=== PATIENT | female | born 1965 | race Caucasian/White ===

== ENCOUNTER 2016-12-10 07:46 | Observation (INO) | payer BC, OTHER ==
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
--- OUTSIDE RECORDS SUMMARY | 2016-12-10 08:21 | XMS REPORT | Continuity of Care Document ---
:1965 Author Organization [place] [address] Care Team Providers Name Role Phone Laurel Frausto Primary Care Provider [phone] Source Comments This disclosure is being made pursuant to the [employer] program and maynot contain all information available regarding this patient.[facility] Active Allergies and Adverse Reactions Allergen Noted Date Severity Reactions Comments Augmentin 11/21/2016 Unknown Dobutamine 10/14/2016 Low Hypotension Propoxyphene 05/09/2015 Low Tachycardia Shellfish Allergy 05/09/2015 High Anaphylaxis Current Medications Be aware that medications may not be up to date as of this document. Alwaysverify current medications with the patient. Prescription Sig. Disp. Refills Start Date End Date Status candesartan-hydrochl Take 1 tablet Active orothiazide (ATACAND by mouth HCT) 16-12.5 MG per daily. tablet aspirin 81 MG tablet Take 81 mg by Active mouth daily. ALPRAZolam (XANAX) 1 Take 1 mg by Active MG tablet mouth nightly as needed for Sleep. venlafaxine HCl Take 75 mg by Active (EFFEXOR) 75 MG mouth daily. tablet Probiotic Product Take by Active (PROBIOTIC DAILY PO) mouth. thyroid (ARMOUR) 65 Take 1 tablet 30 tablet 5 11/21/2016 Active MG tablet by mouth daily. levothyroxine Take 100 mcg 11/21/2016 Discontinued (SYNTHROID, by mouth LEVOTHROID) 100 MCG daily. tablet Active Problems Problem Noted Date Hypothyroidism 01/03/2014 Overview: Overview: NIKOLAS THOMPSON MD Family history of malignant neoplasm of gastrointestinal tract 09/25/2011 Overview: Overview: PRIETO BRUNNER MD Perforation of intestine (HCC) 08/19/2011 Overview: Overview: [place] Emily SAMANTA ALFARO Abnormal mammogram 04/11/2011 Overview: Overview: AYANNA CID MD History of cervical dysplasia 05/10/2010 Overview: Overview: AYANNA CID MD Mild dysplasia of cervix (ROLDAN I) 11/14/2008 Overview: Overview: Sissy FRENCH MD Dyspareunia 11/14/2008 Overview: Overview: Sissy FRENCH MD Hypertension, benign 11/14/2008 Overview: Overview: Sissy FRENCH MD Symptomatic menopausal or female climacteric states 11/15/2004 Overview: Overview: Sissy FRENCH MD Most Recent Encounters Date Type Specialty Providers Description 12/05/2016 Data Import 11/21/2016 Initial consult Endocrinology Husam Aguayo Hypothyroidism C, DO (acquired) (Primary Dx); Other fatigue; Morbid obesity due to excess calories (HCC) 11/11/2016 Abstract Endocrinology Divya Sanchez, RN 11/11/2016 Orders Only Provider, Not In System 11/05/2016 Telephone Gastroenterology Prieto Brunner Procedure MD 10/21/2016 Office Visit General Surgery Cleveland Alfaro Aftercare following S, OUTDOOR STUDIES DIRECTOR surgery (Primary Dx) 10/16/2016 Telephone General Surgery Dale Grarison Results - pathology S, DO 10/16/2016 Orders Only Cardiology Georgia Clements Hypertension, benign A, LAST REPAIRER HELPER (Primary Dx) 10/14/2016 Office Visit Cardiology Lydia Perez R, Status post coronary OUTDOOR STUDIES DIRECTOR angiogram (Primary Dx); Hypokalemia; Essential hypertension; Hospital discharge follow-up 10/11/2016 Scanned Document General Surgery Provider, Not In System 10/04/2016 Telephone General Surgery Dale Garrison Surgical Discussion S, DO 10/03/2016 Clinical Support Cardiology Myla, Preoperative clearance MD Ruchi (Primary Dx); Alma Dinero A, Nonspecific abnormal RN electrocardiogram (ECG) (EKG) 10/03/2016 Clinical Support Cardiology Myla, Preoperative clearance ; MD Ruchi Nonspecific abnormal Fernando, electrocardiogram (ECG) Nehemias P, RT (EKG) 10/02/2016 Telephone Gastroenterology Prieto Brunner Procedure MD 10/01/2016 Office Visit Cardiology Myla, Preoperative clearance MD Ruchi (Primary Dx); Nonspecific abnormal electrocardiogram (ECG) (EKG) 09/30/2016 Telephone General Surgery Dale Garrison Post-op Problem S, DO 09/26/2016 Scanned Document General Surgery Provider, Not In System 09/26/2016 Documentation Gastroenterology Aziza Mckee LPN 09/25/2016 Office Visit General Surgery Bladimir Dale Lymphadenopathy ( Primary S, DO Dx) 09/25/2016 Scanned Document General Surgery Provider, Not In System Social History Tobacco Use Types Packs/Day Years Used Date Never Smoker Smokeless Tobacco: Never Used Tobacco Cessation:Counseling Given: Yes Comments: Alcohol Use Drinks/Week oz/Week Comments Yes once a year Last Filed Vital Signs Vital Sign Reading Time Taken Blood Pressure 110/64 11/21/2016 10:00 AM CDT Pulse 88 11/21/2016 10:00 AM CDT Temperature 36.6 C (97.9 F) 01/03/2014 2:30 PM CDT Respiratory Rate 16 11/21/2016 10:00 AM CDT Height 1.6 m (5' 3") 11/21/2016 10:00 AM CDT Weight 104.69 kg (230 lb 12.8 oz) 11/21/2016 10:00 AM CDT Body Mass Index 40.89 11/21/2016 10:00 AM CDT Oxygen Saturation - - Plan of Care Patient Goal Type Goal Blood Pressure Blood Pressure below 140/90 Date Type Specialty Providers Description 02/24/2017 Appointment Endocrinology Husam Aguayo, DO [address] [place] [address] [phone] (Fax) Health Maintenance Due Date Last Done Comments Tetanus/Pertussis (1 - Tdap) 1985 Pap Smear 1987 Influenza Immunization (#1) 2016 Colonoscopy 2016 Mammogram 2016 Well Adult Visit 2016 Results from Last 3 Months TSH (11/05/2016) Component Value Range TSH 0.688 0.358-3.74 T4, free (11/05/2016) Component Value Range T4, Free 1.18 0.76-1.46 T3, free (11/05/2016) Component Value Range T3, Free 2.9 2.3-4.2 Basic metabolic panel (10/14/2016 10:20 AM) Component Value Range Glucose 98Comment: 60-100 mg/dL Fasting Plasma Glucose (FPG)<100 MG/DL Impaired Fasting Glucose (IFG) 100-125 MG/DL Provisional Diagnosis of Diabetes Mellitus > so=968 MG/DL (Diagnosis Must Be Confirmed) BUN, Blood 12 10-20 mg/dL Creatinine 0.6 0.6-1.2 mg/dL Glomerular Filtration Rate 104 >90 mL/min/1.73mm2 Estimate Glomerlular Filtration Rate 121Comment:The estimated GFR >90 mL/min/1.73mm2 Estimate- has not been validated for women or patients with serious comorbid conditions, or with extremes of body size, muscle mass, or nutritional status. Calcium 9.3 8.4-10.2 mg/dL Sodium 141 136-145 mmol/L Potassium 3.8 3.5-4.6 mmol/L Chloride 104 99-111 mmol/L CO2 27.8 21.0-32.0 mmol/L Narrative Testing performed at [facility], [address] [place] [address].Direct Casting Operator Jimmie Segura MD Tissue Exam (10/11/2016) Specimen Tissue TTE Stress Test (10/03/2016 2:52 PM) [place] [address] Pharmacologic Stress Echocardiogram Report Patient Name: CLEVELAND ESPINAL SPatient ID: [id number] : 1965Study Date: 10/03/2016 2:52:54 PM Gender: [facility]: Height(Cm): 64Weight(Kg): 221 Ref. Physician: RUCHI LANZALocation: MIGUEL ANGELIQJO BSA: Procedures: Stress Echo Report: Pharmacologic stress echocardiogram. Indications: Abnormal EKG. Pre-operative. Findings: Dobutamine Stress Echo: Peak dose of Dobutamine was 30.00 mcg/kg/min. Peak dose of Atropine was 0.00 mg. Baseline HR 63. Peak HR 120. Predicted Maximal HR 170. Percent PMHR Achieved 71 %. Baseline BP 98/60. Peak BP 112/64. Double Product 48047 BPM*mmHg. Supervising Nurse: Alma Dinero RN. Supervising Physician: Ruchi Lanza MD. Reason for Termination: Target heart rate achieved. At 30 mcg/kg/min HR started dropping, BP low, patient had chest pain, sweating, SOB, Dr Lanza came into room, said stopping test, and spoke with pt regarding options. Resting LV Function: Normal left ventricular size and systolic function with normal wall thickness. A contrast enhancement agent was used to better evaluate the left ventricular function. Resting ECG: Normal sinus rhythm. PostStress Segmental Wall Motion Analysis: Normal hyperdynamic contractile response with no inducible ischemia. The echo study was inconclusive for left ventricular function and there was a need for contrast enhancement. Pharmacologic ECG: Normal medication induced exercise ECG. Hemodynamic Response: Normal blood pressure response. Hypotensive blood pressure response. Arrhythmia: No exercise induced arrythmias. Conclusions: Dobutamine infusion induced chest pain, 5/10, at peak. No ECG evidence of ischemia. No echocardiographic evidence of ischemia. Pt became diaphoretic and very hypotensive 84/32 mmHg. Abnormal study suggestive of ischemia. Electronically Signed By: Ruchi Lanza M.D. 2016-10-03 18:09:30 Electronically Signed By: Ruchi Lanza M.D. 2016-10-03 [id number] CC: CC: Procedure Note Toño, External Ris In - Tiana Oct 03, 2016 6:11 [place] [address] Pharmacologic Stress Echocardiogram Report Patient Name: CLEVELAND ESPINAL SPatient ID: [id number] : 1965Study Date: 10/03/2016 2:52:54 PM Gender: [facility]: Height(Cm): 64Weight(Kg): 221 Ref. Physician: RUCHI LANZALocation: YOAV BSA: Procedures: Stress Echo Report: Pharmacologic stress echocardiogram. Indications: Abnormal EKG. Pre-operative. Findings: Dobutamine Stress Echo: Peak dose of Dobutamine was 30.00 mcg/kg/min. Peak dose of Atropine was 0.00 mg. Baseline HR 63. Peak HR 120. Predicted Maximal HR 170. Percent PMHR Achieved 71 %. Baseline BP 98/60. Peak BP 112/64. Double Product 08901 BPM*mmHg. Supervising Nurse: Alma Dinero RN. Supervising Physician: Ruchi Lanza MD. Reason for Termination: Target heart rate achieved. At 30 mcg/kg/min HR started dropping, BP low, patient had chest pain, sweating, SOB, Dr Lanza came into room, said stopping test, and spoke with pt regarding options. Resting LV Function: Normal left ventricular size and systolic function with normal wall thickness. A contrast enhancement agent was used to better evaluate the left ventricular function. Resting ECG: Normal sinus rhythm. PostStress Segmental Wall Motion Analysis: Normal hyperdynamic contractile response with no inducible ischemia. The echo study was inconclusive for left ventricular function and there was a need for contrast enhancement. Pharmacologic ECG: Normal medication induced exercise ECG. Hemodynamic Response: Normal blood pressure response. Hypotensive blood pressure response. Arrhythmia: No exercise induced arrythmias. Conclusions: Dobutamine infusion induced chest pain, 5/10, at peak. No ECG evidence of ischemia. No echocardiographic evidence of ischemia. Pt became diaphoretic and very hypotensive 84/32 mmHg. Abnormal study suggestive of ischemia. Electronically Signed By: Ruchi Lanza M.D. 2016-10-03 18:09:30-0600 Electronically Signed By: Ruchi Lanza M.D. 2016-10-03 18:09:31-0600 CC: CC: TTE (Transthoracic Echo) Complete (10/03/2016 2:18 PM) [place] [address] Echocardiographic Report Patient Name: CLEVELAND ESPINAL SPatient ID: [id number] : 1965Study Date: 10/03/2016 2:18:12 PM Gender: FTech: VIANCAJ Height(Cm): 160Weight(Kg): 100 Ref. Physician: RUCHI LANZALocation: YOAV Quality: Good BSA: 2.11 Procedures: Echocardiographic Report: Transthoracic echocardiogram with complete 2D, M-Mode, color flow and Doppler examination. Indications: Shortness of breath. Measurements: 2D/M Mode MeasurementValueNormal Range AoR Diam MM2.40 [ 2.60 - 3.70 ] cm LA Dimen MM3.8[ 2.7 - 3.8 ] cm LA/Ao MM 1.57 ratio ACS MM 1.5cm AV VTI 32.2 cm LVOT Diam2.1[ 1.7 - 2.1 ] cm LVOT Bwmr626.9 LVOT Mean PG 2.4[ 1.0 - 3.0 ] mmHg LVOT Peak Gss676.0[ 70.0 - 110.0 ] cm/sec LVOT Peak PG 4.5[ 2.0 - 6.0 ] mmHg LVOT VTI 22.0 [ 20.0 - 30.0 ] cm MV E Peak Vel71.4 [ 60.0 - 130.0 ] cm/sec MV A Peak Vel86.4 [ 100.0 - 120.0 ] cm/sec MV E/A 0.8[ 0.8 - 1.5 ] ratio MV Decel Time0.3[ 104.0 - 258.0 ] msec MV PHT 0.2 PV Peak Vel98.5 [ 40.0 - 80.0 ] cm/sec PV Peak PG 3.9mmHg TR Peak Ysh239.0[ 100.0 - 280.0 ] cm/sec TR Peak PG 16.4 mmHg Doppler MeasurementValueNormal Range AV Mean PG 4.5[ 2.0 - 4.0 ] mmHg AV Peak Tjp484.0[ 100.0 - 170.0 ] cm/sec AV Peak PG 8.1[ 2.0 - 9.0 ] mmHg DAVE VTI2.4[ 2.0 - 4.0 ] cm2 Findings: Left Ventricle: Normal left ventricular systolic function. No regional wall motion abnormalities. Ejection fraction is estimated at 60 %. Right Ventricle: Normal right ventricular size. Normal right ventricular function. Left Atrium: The left atrium is normal in size. Right Atrium: The right atrium is normal in size. Atrial Septum: Normal atrial septum. Mitral Valve: Normal appearance and function of the mitral valve. Aortic Valve: Normal appearance and function of the trileaflet aortic valve. No significant aortic stenosis or insufficiency. Normal trileaflet aortic valve structure. The aortic valve appears to open and close adequately. Tricuspid Valve: Normal appearance and function of the tricuspid valve. Normal right ventricular systolic pressure. Pulmonic Valve: Normal pulmonic valve appearance and function. Pericardium: Normal pericardium with no significant pericardial effusion or masses seen. Aorta: Normal aortic root. IVC: Normal size and normal respiratory collapse consistent with normal right atrial pressure (<5 mmHg). Pulmonary Artery: Normal pulmonary artery size. Normal pulmonary artery pressures. Conclusions: Normal left ventricular systolic function. No regional wall motion abnormalities. Ejection fraction is estimated at 60 %. Normal appearance and function of the mitral valve. Normal appearance and function of the trileaflet aortic valve. No significant aortic stenosis or insufficiency. Normal trileaflet aortic valve structure. The aortic valve appears to open and close adequately. Normal appearance and function of the tricuspid valve. Normal right ventricular systolic pressure. Electronically Signed By: Ruchi Lanza M.D. 2016-10-03 18:06:42-0600 CC: CC: Procedure Note Toño, External Ris In - Tiana Oct 03, 2016 6:07 [place] [address] Echocardiographic Report Patient Name: CLEVELAND ESPINAL SPatient ID: [id number] : 1965Study Date: 10/03/2016 2:18:12 PM Gender: Isabel: RADHA Height(Cm): 160Weight(Kg): 100 Ref. Physician: RUCHI LANZALocation: YOAV Quality: Good BSA: 2.11 Procedures: Echocardiographic Report: Transthoracic echocardiogram with complete 2D, M-Mode, color flow and Doppler examination. Indications: Shortness of breath. Measurements: 2D/M Mode Measurement Value Normal Range AoR Diam MM 2.40 [ 2.60 - 3.70 ] cm LA Dimen MM 3.8 [ 2.7 - 3.8 ] cm LA/Ao MM 1.57 ratio ACS MM 1.5 cm AV VTI 32.2 cm LVOT Diam 2.1 [ 1.7 - 2.1 ] cm LVOT Area 813.9 LVOT Mean PG 2.4 [ 1.0 - 3.0 ] mmHg LVOT Peak Aman 106.0 [ 70.0 - 110.0 ] cm/sec LVOT Peak PG 4.5 [ 2.0 - 6.0 ] mmHg LVOT VTI 22.0 [ 20.0 - 30.0 ] cm MV E Peak Aman 71.4 [ 60.0 - 130.0 ] cm/sec MV A Peak Aman 86.4 [ 100.0 - 120.0 ] cm/sec MV E/A 0.8 [ 0.8 - 1.5 ] ratio MV Decel Time 0.3 [ 104.0 - 258.0 ] msec MV PHT 0.2 PV Peak Aman 98.5 [ 40.0 - 80.0 ] cm/sec PV Peak PG 3.9 mmHg TR Peak Aman 203.0 [ 100.0 - 280.0 ] cm/sec TR Peak PG 16.4 mmHg Doppler Measurement Value Normal Range AV Mean PG 4.5 [ 2.0 - 4.0 ] mmHg AV Peak Aman 142.0 [ 100.0 - 170.0 ] cm/sec AV Peak PG 8.1 [ 2.0 - 9.0 ] mmHg DAVE VTI 2.4 [ 2.0 - 4.0 ] cm2 Findings: Left Ventricle: Normal left ventricular systolic function. No regional wall motion abnormalities. Ejection fraction is estimated at 60 %. Right Ventricle: Normal right ventricular size. Normal right ventricular function. Left Atrium: The left atrium is normal in size. Right Atrium: The right atrium is normal in size. Atrial Septum: Normal atrial septum. Mitral Valve: Normal appearance and function of the mitral valve. Aortic Valve: Normal appearance and function of the trileaflet aortic valve. No significant aortic stenosis or insufficiency. Normal trileaflet aortic valve structure. The aortic valve appears to open and close adequately. Tricuspid Valve: Normal appearance and function of the tricuspid valve. Normal right ventricular systolic pressure. Pulmonic Valve: Normal pulmonic valve appearance and function. Pericardium: Normal pericardium with no significant pericardial effusion or masses seen. Aorta: Normal aortic root. IVC: Normal size and normal respiratory collapse consistent with normal right atrial pressure (<5 mmHg). Pulmonary Artery: Normal pulmonary artery size. Normal pulmonary artery pressures. Conclusions: Normal left ventricular systolic function. No regional wall motion abnormalities. Ejection fraction is estimated at 60 %. Normal appearance and function of the mitral valve. Normal appearance and function of the trileaflet aortic valve. No significant aortic stenosis or insufficiency. Normal trileaflet aortic valve structure. The aortic valve appears to open and close adequately. Normal appearance and function of the tricuspid valve. Normal right ventricular systolic pressure. Electronically Signed By: Ruchi Lanza M.D. 2016-10-03 18:06:42-0600 CC: CC:
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
[2016-12-10 08:31] LABS: Hematocrit 41.3 % (37.0-47.0); Hemoglobin 13.8 gm/dL (12.5-16.0); Mean Cell Volume 88.6 fl (78-100); Mean Corpuscular Hemoglobin 29.6 pg (27-31); Mean Corpuscular Hgb Conc 33.4 g/dl (32-36); Neutrophil # 3.2 K/mm3 (1.3-6.0); Neutrophil % 53.3 % (42-75.0); Platelet Count 249 K/mm3 (150-450); Red Blood Count 4.66 M/mm3 (4.2-5.4); Red Cell Distribution Width 12.9 % (11.5-14.0); White Blood Count 5.9 K/mm3 (4.0-10.5)
[2016-12-10 08:45] LABS: Albumin * 3.5 gm/dl (3.4-5.0); Anion Gap 11.4 mmol/L (6.8-13.8); BUN/Creatinine Ratio 20.3 (9.0-21.6); Bilirubin, Total 0.3 mg/dL (0.0-1.1); Ca. Corrected For Albumin 8.8 mg/dL (8.4-10.2); Calcium * 8.7 mg/dL (7.9-10.9); Carbon Dioxide 27.6 mmol/L (24-32.6); Total Protein 7.3 gm/dL (6.2-8.2)
--- OUTSIDE RECORDS SUMMARY | 2016-12-10 09:37 | XMS REPORT | Continuity of Care Document ---
:1965 Author Organization [facility] ([facility]) Address [address] [place] [address] Phone [phone] Care Team Providers Name Role Phone JettLaurel Primary Care Provider [phone] Source Comments This disclosure is being made pursuant to the Care Everywhere program, applicable federal and state laws, and may not contain all informaitonavailable regarding this patient.[facility] ([facility]) Active Allergies and Adverse Reactions Allergen Noted [...] Taken Blood Pressure 126/69 08/03/2013 10:05 AM RESEARCH LAB ASSISTANT Pulse 82 08/03/2013 10:05 AM RESEARCH LAB ASSISTANT Temperature 36.6 C (97.9 F) 08/03/2013 10:05 AM RESEARCH LAB ASSISTANT Respiratory Rate - - Height 1.595 m (5' 2.8") 08/03/2013 10:05 AM RESEARCH LAB ASSISTANT Weight 99.8 kg (220 lb 0.3 oz) 08/03/2013 10:05 AM RESEARCH LAB ASSISTANT Body Mass Index 39.23 08/03/2013 10:05 AM RESEARCH LAB ASSISTANT Oxygen Saturation - - Plan of Care [...]
--- OUTSIDE RECORDS SUMMARY | 2016-12-10 09:37 | XMS REPORT | Continuity of Care Document ---
:1965 Author Organization [facility] [place] [address] Care Team Providers Name Role Phone Laurel Frausto Primary Care Provider [phone] Source Comments This disclosure is being made pursuant to the Estimote program and maynot contain all information available regarding this patient.[facility] Active Allergies and Adverse Reactions Allergen Noted [...] General Surgery [place] Alfaro Aftercare following S, WEAVING MACHINE OPERATOR surgery (Primary Dx) 10/16/2016 Telephone General Surgery Dael Garrison Results - pathology S, DO 10/16/2016 Orders Only Cardiology Georgia Clements Hypertension, benign A, SAFETY INVESTIGATOR (Primary Dx) 10/14/2016 Office Visit Cardiology Lydia Perez R, Status post coronary WEAVING MACHINE OPERATOR angiogram (Primary Dx); Hypokalemia; Essential hypertension; Hospital [...] 02/24/2017 Appointment Endocrinology Husam Aguayo, DO [address] [place] [address] [phone] (Fax) Health Maintenance Due Date Last Done [...] MG/DL Provisional Diagnosis of Diabetes Mellitus > zx=877 MG/DL (Diagnosis Must Be Confirmed) BUN, Blood [...] 27.8 21.0-32.0 mmol/L Narrative Testing performed at [facility], [address] [place] [address].Hand Trimmer Jimmie Segura MD Tissue Exam (10/11/2016) Specimen Tissue TTE Stress Test (10/03/2016 2:52 PM) [place] [address] Pharmacologic Stress Echocardiogram Report Patient Name: CLEVELAND ESPINAL SPatient ID: [id number] : 1965Study Date: 10/03/2016 2:52:54 PM Gender: [facility]: Height(Cm): 64Weight(Kg): 221 Ref. Physician: RUCHI LANZALocation: MIGUEL ANGELIQJO BSA: Procedures: Stress Echo Report: Pharmacologic stress echocardiogram. Indications: Abnormal EKG. Pre-operative. Findings: Dobutamine Stress Echo: Peak dose of Dobutamine was 30.00 mcg/kg/min. Peak dose of Atropine was 0.00 mg. Baseline HR 63. Peak HR 120. Predicted Maximal HR 170. Percent PMHR Achieved 71 %. Baseline BP 98/60. Peak BP 112/64. Double Product 08809 BPM*mmHg. Supervising Nurse: Alma Dinero RN. Supervising [...] - Tiana Oct 03, 2016 6:11 [place] [address] Pharmacologic Stress Echocardiogram Report Patient Name: CLEVELAND ESPINAL SPatient ID: [id number] : 1965Study Date: 10/03/2016 2:52:54 PM Gender: [facility]: Height(Cm): 64Weight(Kg): 221 Ref. Physician: RUCHI LANZALocation: YOAV BSA: Procedures: Stress Echo Report: Pharmacologic stress echocardiogram. Indications: Abnormal EKG. Pre-operative. Findings: Dobutamine Stress Echo: Peak dose of Dobutamine was 30.00 mcg/kg/min. Peak dose of Atropine was 0.00 mg. Baseline HR 63. Peak HR 120. Predicted Maximal HR 170. Percent PMHR Achieved 71 %. Baseline BP 98/60. Peak BP 112/64. Double Product 61545 BPM*mmHg. Supervising Nurse: Alma Dinero RN. Supervising [...] TTE (Transthoracic Echo) Complete (10/03/2016 2:18 PM) [place] [address] Echocardiographic Report Patient Name: CLEVELAND ESPINAL SPatient ID: [id number] : 1965Study Date: 10/03/2016 2:18:12 PM Gender: [...] Diam2.1[ 1.7 - 2.1 ] cm LVOT Qepr995.9 LVOT Mean PG 2.4[ 1.0 - 3.0 ] mmHg LVOT Peak Ywh004.0[ 70.0 - 110.0 ] cm/sec LVOT Peak [...] cm/sec PV Peak PG 3.9mmHg TR Peak Gdy134.0[ 100.0 - 280.0 ] cm/sec TR Peak PG 16.4 mmHg Doppler MeasurementValueNormal Range AV Mean PG 4.5[ 2.0 - 4.0 ] mmHg AV Peak Eer033.0[ 100.0 - 170.0 ] cm/sec AV Peak [...] - Tiana Oct 03, 2016 6:07 [place] [address] Echocardiographic Report Patient Name: CLEVELAND ESPINAL SPatient ID: [id number] : 1965Study Date: 10/03/2016 2:18:12 PM Gender: [...]
[2016-12-10] MEDS ORDERED: ENOXAPARIN SODIUM 40 MG/0.4 ML SYRG SC SCH (11:30)
[2016-12-10] MEDS ORDERED: ACETAMINOPHEN 325 MG TABLET PO PRN (11:38)
[2016-12-10 12:56] LABS: Urine Bilirubin Negative (NEGATIVE); Urine Blood Negative /ul (NEGATIVE); Urine Ketone Negative (NEGATIVE); Urine Nitrite Negative (NEGATIVE); Urine Protein Negative (NEGATIVE); Urine Specific Gravity 1.025 SP.GR. (1.005-1.010); Urine Urobilinogen Normal (NORMAL); Urine pH 5.5 pH (5.0-7.0)
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
[2016-12-10 13:05] LABS: Urine Appearance Cloudy; Urine Bacteria 2+; Urine Color Yellow; Urine RBC 0-5 /hpf (0-5)
[2016-12-10 13:06] LABS: Cocaine Ur Negative (NEGATIVE); Urine Barbiturate Negative (NEGATIVE); Urine Benzodiazepines Negative (NEGATIVE); Urine Opiates Negative (NEGATIVE); Urine PCP Negative (NEGATIVE); Urine THC Negative (NEGATIVE)
[2016-12-10 13:06] LABS: Urine Mucus TRACE
[2016-12-10 14:57] LABS: CRP 0.7 mg/dL (0.0-0.9); Magnesium 1.7 mg/dL (1.2-2.8)
[2016-12-10] MEDS ORDERED: NORMAL SALINE 1,000 ML IV ONE (16:28)
[2016-12-10 18:27] LABS: Urine Bilirubin Negative (NEGATIVE); Urine Blood Negative /ul (NEGATIVE); Urine Ketone Negative (NEGATIVE); Urine Nitrite Negative (NEGATIVE); Urine Protein Negative (NEGATIVE); Urine Specific Gravity <=1.005 SP.GR. (1.005-1.010); Urine Urobilinogen Normal (NORMAL)
[2016-12-10 18:38] LABS: Urine Appearance Clear; Urine Bacteria TRACE; Urine Color Yellow; Urine RBC None Seen /hpf (0-5); Urine WBC 0-5 /hpf (0-5)
[2016-12-10] MEDS: NORMAL SALINE 1,000 ML IV PRN (20:48)
[2016-12-10] MEDS ORDERED: VENLAFAXINE HCL 37.5 MG CAP.SR.24H PO ONE (20:53)
[2016-12-10] MEDS ORDERED: ASPIRIN 81 MG TABLET.DR PO SCH (21:00)
[2016-12-10] MEDS ORDERED: ALPRAZolam 1 MG TABLET PO SCH (21:00)
[2016-12-11] MEDS: NORMAL SALINE 1,000 ML IV PRN (04:47)
[2016-12-11] MEDS ORDERED: PANTOPRAZOLE SODIUM 40 MG TABLET.EC PO SCH (07:00)
[2016-12-11 07:13] VITALS: BP 120/64
[2016-12-11] MEDS ORDERED: HYDROCHLOROTHIAZIDE 12.5 MG CAPSULE PO SCH (09:00)
[2016-12-11] MEDS ORDERED: LOSARTAN POTASSIUM 50 MG TABLET PO SCH (09:00)
[2016-12-11] MEDS ORDERED: THYROID,PORK 60 MG TABLET PO SCH (09:00)
[2016-12-11] MEDS ORDERED: VENLAFAXINE HCL 37.5 MG CAP.SR.24H PO SCH ×2 (09:00→21:00)
--- NOTE | 2016-12-11 09:25 | DS ---
(1) HTN (hypertension) Problem: Chronic Qualifiers: Hypertension type: essential hypertension Qualified Code(s): I10 - Essential (primary) hypertension (2) Anxiety Problem: Chronic (3) Depression Problem: Chronic Qualifiers: Depression Type: unspecified Qualified Code(s): F32.9 - Major depressive disorder, single episode, unspecified (4) TIA (transient ischemic attack) Problem: Suspected Qualifiers: Transient cerebral ischemia type: unspecified Qualified Code(s): G45.9 - Transient cerebral ischemic attack, unspecified (5) Toxoplasmosis Problem: Chronic (6) Ataxia Problem: Resolved Description of Stay: Osiris is a 51 year old female with a PMH of HTN, sleep apnea, and lymph node bx positive for toxoplasmosis that presented to the ER this am with c/o severe headache and ataxia with walking towards the right side. Patient states that last night she developed severe pain in her hands and right foot but did not seek treatment and instead went to bed. This am, patient states that she developed sudden onset of dizziness with feeling like she was going to fall to the right side. patient states that at this time, her right sided weakness was so severe that she had to lean against a wall to keep from falling. At this time, she also developed a severe headache on the right side of her head, throbbing in nature. Workup in the emergency room revealed a non-acute head CT. walking in the emergency room, pt states that she is still drifting to the right. pt denies any difficulty speaking or difficulty swallowing. denies any cp or dyspnea. denies any dysuria. denies any visual changes or changes in oral sensation. pt states that she has a cardiac cath in september 2016 that was "normal". Recent history of lymph node bx positive for toxoplasmosis that was not treated as pt is immunocompent and was not having any symptoms. pt was admitted and started on iv fluids. labs were drawn and were wnl. pt refused to have a tsh or toxoplasmosis drawn while admitted. ua was unremarkable. vss throughout admission. pt c/o headache during admission that was worse after working with physical therapy. headache improved after receiving 1 liter ns bolus iv. patient indicated that the only new medication was armour thyroid that was started 3 weeks prior to admission, denies any other new medications. mri of the head was non-acute. overnight patient remained stable and was able to ambulate in the room without any ataxia. pt will be discharged to home this am in stable condition. ataxia most likely due to side effects from armour thyroid. recommend pt call endocrine for recommendations. If no recommendations from endocrine, recommend pt follow up with pcp or neurology. pt verbalized understanding. Procedures Performed: none Discharge Disposition: Home self care Disposition: Home self-care Condition: Stable Discharge Activity: Activity as tolerated Discharge Diet: General/regular food, Other - push water Referrals: Laurel Frausto MD [Primary Care Provider] - Consultation Done:: physical therapy Problem Oriented Discharge Instructions to Patient/Family: Ataxia Complete Home Medications List: Complete Home Medication List: ALPRAZolam [Xanax] 1 mg PO HS 02/13/15 Aspirin [Aspirin Enteric Coated] 81 mg PO HS 02/13/15 Candesartan/Hydrochlorothiazid [Atacand Hct 16-12.5 mg Tab] 1 tab PO DAILY 02/13 Venlafaxine HCl [Effexor Xr] 75 mg PO DAILY 02/13/15 Thyroid,Pork [Nature-Throid] 65 mg PO DAILY 12/10/16
[2016-12-17 12:10] LABS: Alpha-Tocopherol 12.6 mg/L (5.7-19.9); Beta-Gamma-Tocopherol 3.1 mg/L (< 4.3)
== END 2016-12-11 10:26 | disposition home or self-care (01) ==
LOC: ER 07:46 → MS 09:33
PROVIDERS: ADMIT Nurse Practitioner Critical Care Medicine; ATTEND Internal Medicine
DX: R26.0 Ataxic gait (principal); T38.1X5A Adverse effect of thyroid hormones and substitutes, initial encounter; B58.9 Toxoplasmosis, unspecified; I10 Essential (primary) hypertension; F32.9 Major depressive disorder, single episode, unspecified; F41.9 Anxiety disorder, unspecified; E03.9 Hypothyroidism, unspecified
CPT/HCPCS: 36415; 70450; 70552; 80053; 80307; 81001; 82607; 83615; 83735; 84446; 85025; 85045; 85652; 86140; 94660; 96372; 97110; 97116; 97161; 99284; G0378

== ENCOUNTER 2017-10-26 12:05 | Emergency (ER) | payer BC, OTHER ==
[2017-10-26] MEDS ORDERED: ASPIRIN 81 MG TAB.CHEW PO ONE (12:34)
[2017-10-26 12:39] LABS: Hematocrit 42.9 % (37.0-47.0); Hemoglobin 14.6 gm/dL (12.5-16.0); Mean Cell Volume 89.2 fl (78-100); Mean Corpuscular Hemoglobin 30.4 pg (27-31); Mean Platelet Volume 9.4 fl (6.0-9.5); Neutrophil # 5.2 K/mm3 (1.3-6.0); Neutrophil % 62.7 % (42-75.0); Platelet Count 275 K/mm3 (150-450); Red Blood Count 4.81 M/mm3 (4.2-5.4); Red Cell Distribution Width 13.4 % (11.5-14.0); White Blood Count 8.3 K/mm3 (4.0-10.5)
[2017-10-26 12:46] LABS: Prothrombin Time (Patient) 9.8 Seconds (9.0-11.0)
[2017-10-26 12:47] LABS: INR 0.98 INR (0.90-1.10); Partial Thrombolplastin Time 24.9 Seconds (24-32)
[2017-10-26] MEDS ORDERED: ASPIRIN 81 MG TAB.CHEW ONE (12:48)
[2017-10-26 12:52] LABS: ALT 30 U/L (19-67); AST 18 U/L (0-48); Albumin * 3.2 gm/dl (3.4-5.0); Alkaline Phosphatase * 106 U/L (50-170); Anion Gap 12.6 mmol/L (6.8-13.8); BUN/Creatinine Ratio 27.9 (9.0-21.6); Bilirubin, Total 0.2 mg/dL (0.0-1.1); Blood Urea Nitrogen 19 mg/dL (3-23); Ca. Corrected For Albumin 8.7 mg/dL (8.4-10.2); Calcium * 8.4 mg/dL (7.9-10.9); Carbon Dioxide 28.3 mmol/L (24-32.6); Chloride 105 mmol/L (97-106); Glucose * 105 mg/dL (70-110); Potassium 3.9 mmol/L (3.4-4.6); Sodium 142 mmol/L (132-142); Total Protein 7.2 gm/dL (6.2-8.2); Troponin I Less than 0.017 ng/ml (0.00-0.10)
[2017-10-26 13:27] LABS: Urine Appearance Clear; Urine Bilirubin Negative (NEGATIVE); Urine Blood Negative /ul (NEGATIVE); Urine Color Yellow; Urine Ketone Negative (NEGATIVE); Urine Nitrite Negative (NEGATIVE); Urine Protein Negative (NEGATIVE); Urine Specific Gravity 1.025 SP.GR. (1.005-1.010); Urine Urobilinogen Normal (NORMAL)
[2017-10-26 13:28] LABS: Urine Bacteria None Seen; Urine RBC None Seen /hpf (0-5); Urine WBC 0-5 /hpf (0-5)
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
[2017-10-26 14:59] VITALS: BP 129/69
== END 2017-10-26 14:40 | disposition home or self-care (01) ==
LOC: ER 12:05
DX: F41.9 Anxiety disorder, unspecified; E03.9 Hypothyroidism, unspecified; R07.9 Chest pain, unspecified; F32.9 Major depressive disorder, single episode, unspecified; Z87.440 Personal history of urinary (tract) infections; R05 Cough; I10 Essential (primary) hypertension